=== PATIENT | female | born 1985 ===

== ENCOUNTER → 2017-09-11 | Day surgery (SDC) | payer OTHER ==
[~2017-09-11] MED LIST: METHYLPREDNISOLONE ACETATE INJ 40 MG/1 ML ML ONE
--- NOTE | 2017-09-12 15:18 | RADIOLOGY REPORT (SQ) ---
EXAM DESCRIPTION: INJECT/ASPIR WRIST/ELB/ANKLE; FLUORO/NEEDLE PLACEMENT COMPLETED DATE/TIME: 09/11/2017 4:36 pm; 09/11/2017 4:37 pm REASON FOR STUDY: M79.672 PAIN IN LEFT FOOT M79.672 PAIN IN LEFT FOOT COMPARISON: None. FLUOROSCOPY TIME: 2.4 minutes 2 digital radiographic images saved to PACS. LIMITATIONS: None. PROCEDURE: SITE OF INJECTION: Left 2nd tarsometatarsal joint LOCALIZING CONTRAST TYPE AND DOSE: None MEDICATION TYPE AND DOSE: 1 mL of a mixture of 40 mg Depo-Medrol and 1 mL 0.5% bupivacaine Using local anesthesia and sterile technique with fluoroscopic guidance, the needle was advanced into the joint. This was followed by therapeutic injection of the indicated medications. The needle was removed. There were no immediate complications. Preprocedure pain level: 0/10. Postprocedure pain level: 0/10. IMPRESSION: THERAPEUTIC INJECTION OF THE LEFT 2ND TARSOMETATARSAL JOINT ABOVE. COMMENT: Patient medication list reviewed: Yes- Quality ID# [id number]:Eligible professional attests to doc umenting in the medical record they obtained, updated, or reviewed the patient's current medications. . Quality ID 145: Final reports for procedures using fluoroscopy that document radiation exposure angela ivanna, or exposure time and number of fluorographic images (if radiation exposure indices are not avail able) TECHNICAL DOCUMENTATION: JOB ID: [id number] [employer]- All Rights Reserved Reading location - IP/workstation name: [email or web address]
--- NOTE | 2017-09-12 15:18 | RADIOLOGY REPORT (SQ) ---
EXAM DESCRIPTION: INJECT/ASPIR WRIST/ELB/ANKLE; FLUORO/NEEDLE PLACEMENT COMPLETED DATE/TIME: 09/11/2017 4:36 pm; 09/11/2017 4:37 pm REASON FOR STUDY: M79.672 PAIN IN LEFT FOOT M79.672 PAIN IN LEFT FOOT COMPARISON: None. FLUOROSCOPY TIME: 2.4 minutes 2 digital radiographic images saved to PACS. LIMITATIONS: None. PROCEDURE: SITE OF INJECTION: Left 2nd tarsometatarsal joint LOCALIZING CONTRAST TYPE AND DOSE: None MEDICATION TYPE AND DOSE: 1 mL of a mixture of 40 mg Depo-Medrol and 1 mL 0.5% bupivacaine Using local anesthesia and sterile technique with fluoroscopic guidance, the needle was advanced into the joint. This was followed by therapeutic injection of the indicated medications. The needle was removed. There were no immediate complications. Preprocedure pain level: 0/10. Postprocedure pain level: 0/10. IMPRESSION: THERAPEUTIC INJECTION OF THE LEFT 2ND TARSOMETATARSAL JOINT ABOVE. COMMENT: Patient medication list reviewed: Yes- Quality ID# [id number]:Eligible professional attests to doc umenting in the medical record they obtained, updated, or reviewed the patient's current medications. . Quality ID 145: Final reports for procedures using fluoroscopy that document radiation exposure angela ivanna, or exposure time and number of fluorographic images (if radiation exposure indices are not avail able) TECHNICAL DOCUMENTATION: JOB ID: [id number] [employer]- All Rights Reserved Reading location - IP/workstation name: [email or web address]
== END ==
LOC: RAD 15:16
PROVIDERS: ATTEND Orthopaedic Surgery
DX: M79.672 Pain in left foot (principal)
CPT/HCPCS: 20605; 77002; J1020